=== PATIENT | male | born 1990 | race Caucasian/White ===

== ENCOUNTER 2018-07-02 00:22 | Emergency (ER) | payer SELFPAY ==
[~2018-07-02] VITALS: Ht 162.6 cm; Wt 80.3 kg
[2018-07-02 00:35] VITALS: BP 131/86; Ht 162.6 cm; Wt 80.3 kg
== END 2018-07-02 01:29 | disposition home or self-care (01) ==
LOC: ED 00:22
DX: L23.9 Allergic contact dermatitis, unspecified cause (principal)

== ENCOUNTER 2018-10-16 16:12 | Emergency (ER) | payer MEDICAID ==
[~2018-10-16] VITALS: Ht 165.1 cm; Wt 82.6 kg
[2018-10-16 16:31] VITALS: Ht 165.1 cm; Wt 82.6 kg
[2018-10-16 17:20] VITALS: BP 151/81
== END 2018-10-16 17:20 | disposition home or self-care (01) ==
LOC: ED 16:12
DX: L30.9 Dermatitis, unspecified (principal)